=== PATIENT | male | born 1965 | race Caucasian/White ===

== ENCOUNTER → 2018-04-29 | Outpatient (CLI) | payer MEDICARE, MEDICAID ==
[~2018-04-29] MED LIST: IBUPROFEN; METFORMIN; [UNRECOGNIZED DRUG - OTHER]
== END | disposition home or self-care (01) ==
LOC: US 08:31
PROVIDERS: ATTEND Internal Medicine Nephrology
DX: R18.8 Other ascites (principal)
CPT/HCPCS: 76705

== ENCOUNTER 2020-08-10 12:09 | Emergency (ER) | payer MEDICARE, MEDICAID ==
[~2020-08-10] VITALS: Ht 165.1 cm; Wt 77.0 kg
[2020-08-10 16:48] LABS: PHOSPHORUS 7.4 mg/dL (2.5-4.9)
[2020-08-10 19:15] VITALS: BP 144/68
== END 2020-08-10 19:31 | disposition left against medical advice (07) ==
LOC: ER 12:09 → CANBEDREQ 08-11 14:54
DX: U07.1 COVID-19 (principal); I13.11 Hypertensive heart and chronic kidney disease without heart failure, with stage 5 chronic kidney disease, or end stage renal disease; E11.22 Type 2 diabetes mellitus with diabetic chronic kidney disease; N18.6 End stage renal disease; Z99.2 Dependence on renal dialysis
CPT/HCPCS: 36415; 80069; 87426; 99283